=== PATIENT | male | born 1990 | race Caucasian/White ===

== ENCOUNTER 2023-09-05 22:57 | Emergency (ER) | payer MEDICAID ==
[~2023-09-05] VITALS: Ht 177.8 cm; Wt 93.0 kg
[2023-09-05 23:02] VITALS: BP 124/74; PULSE 82; RESP 18; TEMP 98; O2SAT 100
[2023-09-05 23:55] LABS: BASOPHILS % 0.7 % (0.0-2.0); HEMATOCRIT. 42.1 % (42.0-52.0); HEMOGLOBIN. 13.9 g/dL (14.0-18.0); LYMPHOCYTES % 28.5 % (20.0-50.0); MEAN CORPUSCULAR HEMOGLOBIN 30.1 pg (28.0-32.0); MEAN CORPUSCULAR HGB CONC 33.1 g/dL (31.0-37.0); MEAN CORPUSCULAR VOLUME 90.8 fL (80.0-94.0); MEAN PLATELET VOLUME 8.2 fl (7.4-10.4); NEUTROPHILS % 62.8 % (40.0-76.0); PLATELET 215 x1000/uL (130-400); RED BLOOD CELL COUNT 4.63 mill/uL (4.7-6.1)
[2023-09-06] LABS: CHLORIDE 106 mEq/L (98-107); POTASSIUM 3.2 mEq/L (3.5-5.1); SODIUM 138 mEq/L (136-145)
[2023-09-06 00:01] LABS: CARBON DIOXIDE 24 mEq/L (21-32)
[2023-09-06 00:02] LABS: CALCIUM 9.1 mg/dL (8.7-10.4)
[2023-09-06 00:07] LABS: GLUCOSE 88 mg/dL (70-105); UREA NITROGEN BLOOD 7 mg/dL (9-23)
[2023-09-06 00:14] LABS: TROPONIN I HIGH SENSITIVITY < 4 ng/L (3.0-53)
== END 2023-09-06 04:23 | disposition home or self-care (01) ==
LOC: ER 22:57
DX: R07.9 Chest pain, unspecified (principal)
CPT/HCPCS: 36415; 71045; 80048; 84484; 85025; 93005; 99285